=== PATIENT | male | born 1955 | race Caucasian/White ===

== ENCOUNTER 2023-01-28 12:35 | Emergency (ER) | payer OTHER ==
[~2023-01-28] VITALS: Ht 175.3 cm; Wt 94.6 kg
[2023-01-28] MEDS ORDERED: LISINOPRIL2.5 MG PO (12:47)
[2023-01-28] MEDS ORDERED: ASACOL HD800 MG PO (12:48)
[2023-01-28 12:53] LABS: BASOPHILS 1.2 % (0-2); EOSINOPHILS 5.5 % (0-6); HEMATOCRIT 46.2 % (35.0-50.0); HEMOGLOBIN 15.4 g/dL (12.0-18.0); LYMPHOCYTES 34.7 % (24-44); MCH 30.4 (27-36); MCHC 33.4 g/dl (30-36); MCV 91.1 fl (81-99); MONOCYTES 14.3 % (0-12); NEUTROPHILS 44.3 % (39-80); PLATELET COUNT 331 K/uL (140-440); RBC 5.08 M/ul (4.3-5.7); RDW 14.2 (10.5-15.0)
[2023-01-28 13:05] LABS: ALBUMIN 3.9 g/dL (3.4-5.0); ALBUMIN/GLOBULIN RATIO 1.15 (1.1-2.4); ALKALINE PHOSPHATASE 45 U/L (46-116); ALT (SGPT) 52 U/L (14-59); ANION GAP 11.2 (7-21); AST (SGOT) 33 U/L (15-37); BILIRUBIN, TOTAL 0.4 ng/dL (0.2-1.0); BUN/CREATININE RATIO 13.63 (6.0-28.6); CARBON DIOXIDE 29 mmol/L (21-32); CHLORIDE 101 mmol/L (98-107); CREATININE, SERUM 0.88 mg/dL (0.70-1.30); GLOMERULAR FILTRATION RATE,EST 95 mL/min (>60); POTASSIUM 4.2 mmol/L (3.5-5.1); PROTEIN, TOTAL 7.3 g/dL (6.4-8.2); UREA NITROGEN 12 mg/dL (7-18)
[2023-01-28] MEDS ORDERED: LEVOTHYROXINE50 MC1 PO (13:48)
[2023-01-28] MEDS ORDERED: MECLIZINE HCL25 MG PO (17:03)
[2023-01-28 17:19] VITALS: BP 162/96
--- NOTE | 2023-01-28 23:19 | EKG ---
[facility] [address] [facility] [place] [address] Signed Normal sinus rhythm Minimal voltage criteria for LVH, may be normal variant ( [place] product ) Borderline ECG No previous ECGs available Confirmed by Loyd Tanner MD () on 01/28/2023 11:19:17 PM Electronically Signed By: LOYD TANNER MD 01/28/23 2319 PATIENT NAME: Electrocardiogram DATE OF : 57 PHYSICIAN: LOYD TANNER MD REPORT #: [id number] REPORT IS CONFIDENTIAL AND NOT TO BE RELEASED WITHOUT AUTHORIZATION
== END 2023-01-28 17:22 | disposition home or self-care (01) ==
LOC: ED 12:35
PROVIDERS: Student in an Organized Health Care Education/Training Program
DX: R42 Dizziness and giddiness (principal); I10 Essential (primary) hypertension; Z79.899 Other long term (current) drug therapy
CPT/HCPCS: 36415; 70450; 70496; 70498; 71045; 80053; 84484; 85025; 93005; 93010; 99285-25; A9270